=== PATIENT | male | born 2000 | race Two or more races ===

== ENCOUNTER 2021-02-05 19:51 | Emergency (ER) | payer SELFPAY ==
[~2021-02-05] VITALS: Ht 167.6 cm; Wt 71.7 kg
[2021-02-05 20:38] VITALS: BP 117/72
== END 2021-02-05 21:06 | disposition left against medical advice (07) ==
LOC: ER 19:51 → EDBD 19:51 → ER 21:06
DX: T78.40XA Allergy, unspecified, initial encounter (principal); X58.XXXA Exposure to other specified factors, initial encounter; Z53.29 Procedure and treatment not carried out because of patient's decision for other reasons